=== PATIENT | male | born 1965 | race Caucasian/White ===

== ENCOUNTER 2021-12-31 16:36 | Emergency (ER) | payer MEDICARE | END 2021-12-31 17:20 | disposition home or self-care (01) | LOC: ED 16:36 | DX: R60.0 Localized edema (principal); Z76.0 Encounter for issue of repeat prescription ==

== ENCOUNTER 2023-10-14 06:19 | Emergency (ER) | payer OTHER ==
[2023-10-14] MEDS ORDERED: AMOX-CLAV 875-1 EACH PO (08:25)
== END 2023-10-14 08:42 | disposition home or self-care (01) ==
LOC: ED 06:19
DX: J02.9 Acute pharyngitis, unspecified (principal); Z20.822 Contact with and (suspected) exposure to COVID-19

== ENCOUNTER 2024-03-26 13:42 | Emergency (ER) | payer OTHER ==
[~2024-03-26 13:42] MED LIST: AMOX-CLAV 875-1 EACH PO
[2024-03-26] MEDS ORDERED: NITROSTAT0.4 MG SL (16:56)
== END 2024-03-26 17:12 | disposition home or self-care (01) ==
LOC: ED 13:42
DX: R07.9 Chest pain, unspecified (principal); Z76.0 Encounter for issue of repeat prescription; Z79.2 Long term (current) use of antibiotics; Z59.00 Homelessness unspecified

== ENCOUNTER 2025-08-17 20:05 | Emergency (ER) | payer OTHER ==
[~2025-08-17] VITALS: Ht 198.1 cm; Wt 118.4 kg
[~2025-08-17 20:05] MED LIST changes: +NITROSTAT0.4 MG SL
[2025-08-17 20:50] LABS: BASO # 0.0 10*3/uL (0.0-0.1); BASO % 0.5 % (0.0-1.0); EOS # 0.1 10*3/uL (0.0-0.4); EOS % 0.7 % (1.0-4.0); MEAN CELL VOLUME 83.8 fl (80.0-94.0); MEAN CORPUSCULAR HGB 28.7 pg (27.0-31.0); MEAN PLATELET VOLUME 9.8 fl (9.6-12.3); MONO # 0.9 10*3/uL (0.1-1.0); MONO % 11.9 % (3.0-9.0); NEUT # 4.7 10*3/uL (2.3-7.9); NEUT % 62.5 % (47.0-73.0); NUCLEATED RED BLOOD CELL 0.0 % (0.0-0.0); NUCLEATED RED BLOOD CELL 0.0 10*3/uL (0.0-0.0); PLATELET COUNT AUTOMATED 206 10*3/uL (130-400); RED CELL DISTRI WIDTH 13.2 % (0-14.5)
[2025-08-17 21:10] LABS: BUN 22 mg/dl (9-23)
[2025-08-17 21:25] LABS: BILIRUBIN Negative (Negative); BLOOD 3+ (Negative); CLARITY Clear (Clear); COLOR Yellow (Yellow); KETONE Negative (Negative); LEUKO ESTERASE Trace (Negative); NITRITE Negative (Negative); PH 5.0 (4.5-8.0); SPECIFIC GRAVITY 1.020 (1.001-1.030); UROBILINOGEN 1.0 E.U./dl (0.0-1.0)
[2025-08-17 21:32] LABS: BACTERIA 2+; RBC TNTC rbc/hpf (0-2)
[2025-08-17] MEDS ORDERED: FLOMAX0.4 MG PO (22:48)
[2025-08-17] MEDS ORDERED: Ondansetron4 MG PO (22:58)
[2025-08-17] MEDS ORDERED: KETOROLAC10 MG PO (22:58)
== END 2025-08-17 23:32 | disposition home or self-care (01) ==
LOC: ED 20:05
PROVIDERS: Nurse Practitioner Family
DX: N20.0 Calculus of kidney (principal); I10 Essential (primary) hypertension; E11.9 Type 2 diabetes mellitus without complications; Z98.890 Other specified postprocedural states